=== PATIENT | male | born 1990 | race African-American/Black ===

== ENCOUNTER 2025-05-11 20:00 | Emergency (ER) | payer OTHER ==
[~2025-05-11] VITALS: Ht 172.7 cm; Wt 73.0 kg
[2025-05-11 20:06] VITALS: BP 134/62; PULSE 71; RESP 18; TEMP 98.2; O2SAT 98
[2025-05-11] MEDS ORDERED: GABA-1180 MT (23:09)
== END 2025-05-12 03:25 | disposition home or self-care (01) ==
LOC: ER 20:00
DX: M79.2 Neuralgia and neuritis, unspecified (principal); Z76.0 Encounter for issue of repeat prescription
CPT/HCPCS: 99283

== ENCOUNTER 2025-05-24 17:14 | Emergency (ER) | payer OTHER ==
[~2025-05-24] VITALS: Ht 167.6 cm; Wt 73.0 kg
[~2025-05-24 17:14] MED LIST: GABA-1180 MT
[2025-05-24 17:15] VITALS: O2SAT 97
[2025-05-24] MEDS ORDERED: GABA-1180 MT (17:48)
[2025-05-24] MEDS: GABAPENTIN 300MG CAPSULE PO ONE (18:23)
[2025-05-24] MEDS: KETOROLAC 15MG/ML VIAL IM ONE (18:24)
[2025-05-24 18:30] VITALS: BP 127/65; PULSE 61; RESP 18; TEMP 36.8; O2SAT 98
== END 2025-05-24 18:30 | disposition home or self-care (01) ==
LOC: ER 17:14
DX: G62.9 Polyneuropathy, unspecified (principal)
CPT/HCPCS: 96372; 99283; J1885; Z7610